=== PATIENT | female | born 1995 | race Caucasian/White ===

== ENCOUNTER 2018-04-05 17:30 | Emergency (ER) | payer SELFPAY ==
[2018-04-05 18:25] LABS: BASOPHILS # (AUTO) 0.2 10^3/uL (0.0-0.1); BASOPHILS % (AUTO) 2.4 %; EOSINOPHILS # (AUTO) 0.2 10^3/uL (0.0-0.7); EOSINOPHILS % (AUTO) 1.8 %; HGB - HEMOGLOBIN 14.8 g/dL (12.0-16.0); LYMPHOCYTES % (AUTO) 9.9 %; MEAN CORPUSCULAR HEMOGLOBIN 31.2 pg (27.0-31.0); MEAN CORPUSCULAR HGB CONC 32.8 g/dL (32.0-36.0); MEAN CORPUSCULAR VOLUME 95.3 fL (81.0-99.0); MEAN PLATELET VOLUME 8.1 fL (7.9-10.8); MONOCYTES # (AUTO) 0.4 10^3/uL (0.0-1.0); MONOCYTES % (AUTO) 3.8 %; NEUTROPHILS % (AUTO) 82.1 %; PLT - PLATELET COUNT 298 10^3/uL (130-450); RED BLOOD COUNT 4.76 10^6/uL (4.20-5.40); RED CELL DISTRIBUTION WIDTH 13.7 % (12.0-15.0); WHITE BLOOD COUNT 9.8 x10^3/uL (4.8-10.8)
[2018-04-05 18:34] LABS: ALBUMIN 4.5 g/dL (3.2-5.5); ALBUMIN/GLOBULIN RATIO 1.4 (1.0-2.2); BILIRUBIN,TOTAL 0.3 mg/dL (0.2-1.0); CALCIUM 9.4 mg/dL (8.5-10.3); CREATININE 0.5 mg/dL (0.4-1.0); TOTAL PROTEIN 7.7 g/dL (6.7-8.2)
--- NOTE | 2018-04-05 18:38 | ED Physician Documentation ---
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 Assoc with headache. Headache is pounding. C/O irregular menses every few months only. Appetite is normal. Headache is only present on standing. She is pain-free on evaluation in the emergency department.) Review of Systems Constitutional: denies: Fever, Chills, Fatigue Throat: denies: Sore throat Cardiac: reports: Chest pain / pressure. denies: Palpitations Respiratory: denies: Dyspnea, Cough GI: reports: Abdominal Pain. denies: Nausea, Vomiting, Constipation, Diarrhea PD PAST MEDICAL HISTORY - Past Medical History Past Medical History: No - Past Surgical History Past Surgical History: No - Present Medications Home Medications: Ambulatory Orders Medication Instructions Recorded Confirmed Levonorgestrel [Mirena] 1 each IY 04/05/18 - Allergies Allergies/Adverse Reactions: Allergies Allergy/AdvReac Type Severity Reaction Status Date / Time No Known Drug Allergies Allergy Verified 04/05/18 17:36 - Social History Does the pt smoke?: No Smoking Status: Never smoker Does the pt drink ETOH?: No Does the pt have substance abuse?: No - Immunizations Immunizations are current?: Yes - POLST Patient has POLST: No PD ED PE NORMAL - Vitals Vital signs reviewed: Yes - General General: Alert and oriented X 3, No acute distress - HEENT HEENT: PERRL, EOMI - Neck Neck: Supple, no meningeal sign, No bony TTP - Cardiac Cardiac: RRR (but tachycardic), No murmur - Respiratory Respiratory: No respiratory distress, Clear bilaterally - Abdomen Abdomen: Normal bowel sounds, Soft, Other (TTP in RLQ) - Back Back: No CVA TTP, No spinal TTP - Derm Derm: Normal color, Warm and dry - Extremities Extremities: No edema, No calf tenderness / cord - Neuro Neuro: Alert and oriented X 3, Normal speech Results - Vitals Vitals: Vital Signs - 24 hr 04/05/18 04/05/18 04/05/18 17:33 17:47 19:37 Temperature 37 C 36.9 C 36.6 C Heart Rate 127 H 130 H 106 H Respiratory 18 15 19 Rate Blood Pressure 110/83 H 120/75 102/65 O2 Saturation 99 99 99 Oxygen O2 Source Room air - EKG (time done) 1741 Rate: Rate (enter#) (131) Rhythm: Sinus tachycardia Parnell: Normal Intervals: Normal [place] QRS: Normal Ischemia: Normal ST segments Computer interpretation: Agree with computer - Labs Labs: Laboratory Tests 04/05/18 04/05/18 04/05/18 18:15 18:15 18:15 WBC 9.8 RBC 4.76 Hgb 14.8 Hct 45.3 MCV 95.3 MCH 31.2 H MCHC 32.8 RDW 13.7 Plt Count 298 MPV 8.1 Neut # (Auto) 8.0 H Lymph # (Auto) 1.0 L [place] # (Auto) 0.4 Eos # (Auto) 0.2 Baso # (Auto) 0.2 H Absolute Nucleated RBC 0.00 Nucleated RBC % 0.0 D-Dimer Sodium 133 L Potassium 3.6 Chloride 101 Carbon Dioxide 24 Anion Gap 8.0 BUN 14 Creatinine 0.5 Estimated GFR (MDRD) 154 Glucose 144 H Calcium 9.4 Total Bilirubin 0.3 AST 24 ALT 24 Alkaline Phosphatase 63 Troponin I < 0.04 Total Protein 7.7 Albumin 4.5 Globulin 3.2 Albumin/Globulin Ratio 1.4 Lipase 29 Urine Color Urine Clarity Urine pH Ur Specific [place] Urine Protein Urine Glucose (UA) Urine Ketones Urine Occult Blood Urine Nitrite Urine Bilirubin Urine Urobilinogen Ur Leukocyte Esterase Urine RBC Urine WBC Ur Squamous Epith Cells Urine Bacteria Ur Microscopic Review Urine Culture Comments Urine HCG, Qual Urine Opiates Screen Ur Oxycodone Screen Urine Methadone Screen Ur Propoxyphene Screen Ur Barbiturates Screen Ur Tricyclics Screen Ur Phencyclidine Scrn Ur Amphetamine Screen U Methamphetamines Scrn U Benzodiazepines Scrn Urine Cocaine Screen U Cannabinoids Screen 04/05/18 04/05/18 04/05/18 18:15 18:36 18:36 WBC RBC Hgb Hct MCV MCH MCHC RDW Plt Count MPV Neut # (Auto) Lymph # (Auto) [place] # (Auto) Eos # (Auto) Baso # (Auto) Absolute Nucleated RBC Nucleated RBC % D-Dimer < 200.0 L Sodium Potassium Chloride Carbon Dioxide Anion Gap BUN Creatinine Estimated GFR (MDRD) Glucose Calcium Total Bilirubin AST ALT Alkaline Phosphatase Troponin I Total Protein Albumin Globulin Albumin/Globulin Ratio Lipase Urine Color YELLOW Urine Clarity CLEAR Urine pH 6.5 Ur Specific [place] 1.010 Urine Protein NEGATIVE Urine Glucose (UA) NEGATIVE Urine Ketones NEGATIVE Urine Occult Blood MODERATE H Urine Nitrite NEGATIVE Urine Bilirubin NEGATIVE Urine Urobilinogen 0.2 (NORMAL) Ur Leukocyte Esterase NEGATIVE Urine RBC 0-5 Urine WBC 0-3 Ur Squamous Epith Cells RARE Squamous Urine Bacteria None Seen Ur Microscopic Review INDICATED Urine Culture Comments NOT INDICATED Urine HCG, Qual NEGATIVE Urine Opiates Screen NEGATIVE Ur Oxycodone Screen NEGATIVE Urine Methadone Screen NEGATIVE Ur Propoxyphene Screen NEGATIVE Ur Barbiturates Screen NEGATIVE Ur Tricyclics Screen NEGATIVE Ur Phencyclidine Scrn NEGATIVE Ur Amphetamine Screen NEGATIVE U Methamphetamines Scrn NEGATIVE U Benzodiazepines Scrn NEGATIVE Urine Cocaine Screen NEGATIVE U Cannabinoids Screen NEGATIVE - Rads (name of study) CT A/P Radiology: EMP read contemporaneously (normal) PD MEDICAL DECISION MAKING - ED course ED course: This is a 22-year-old woman who presents with multiple complaints, most pressing is abdominal pain and headache. The headache pattern is inconsistent with emergency medical diagnosis, it is only present on standing. She was pain-free after meds here and CT imaging was done of her belly which was read as normal but to my eye has a generous stool load which we will treat at home with magnesium citrate. All history was done and all questions were answered with the aid of a professional lpn medical assistant using a [employer] tablet. Departure - Departure Disposition: 01 Home, Self Care Clinical Impression: Irregular menses Abdominal pain Qualifiers: Abdominal location: left lower quadrant Qualified Code(s): R10.32 - Left lower quadrant pain Constipation Qualifiers: Constipation type: slow transit constipation Qualified Code(s): K59.01 - Slow transit constipation Headache Qualifiers: Headache type: unspecified Headache chronicity pattern: acute headache Intractability: not intractable Qualified Code(s): R51 - Headache Condition: Good Record reviewed to determine appropriate education?: Yes Instructions: ED Abdominal Pain Unkn Cause Print Language: Frisian Comments: Regrese por cualquier sntoma nuevo o que empeore. Regreso si no mejor en 3-5 ribeiro.
[2018-04-05] MEDS ORDERED: MAG HYDROX/AL HYDROX/SIMETH 30 ML UDC PO STA (18:39)
[2018-04-05] MEDS ORDERED: LIDOCAINE VISCOUS 2% 15 ML UDC MM STA (18:39)
[2018-04-05 18:49] LABS: MUDS CUTOFF CONCENTRATIONS CUTOFF CONC BELOW:
[2018-04-05 18:51] LABS: BILIRUBIN,URINE NEGATIVE (NEGATIVE); GLUCOSE, URINE (UA) NEGATIVE (NEGATIVE); KETONES,URINE (UA) NEGATIVE (NEGATIVE); LEUKOCYTE ESTERASE, URINE NEGATIVE (NEGATIVE); NITRITE,URINE NEGATIVE (NEGATIVE); OCCULT BLOOD,URINE MODERATE (NEGATIVE); PH,URINE 6.5 PH (5.0-7.5); PROTEIN,URINE NEGATIVE (NEGATIVE); UROBILINOGEN,URINE 0.2 (NORMAL) E.U./dL (NORMAL)
[2018-04-05 18:53] LABS: CLARITY,URINE CLEAR (CLEAR); HCG UR QUAL NEGATIVE
[2018-04-05] MEDS ORDERED: ACETAMINOPHEN 325 MG TABLET PO STA (19:00)
[2018-04-05 19:03] LABS: AMPHETAMINE SCREEN,URINE NEGATIVE (NEGATIVE); BENZODIAZEPINES SCREEN, URINE NEGATIVE (NEGATIVE); COCAINE SCREEN URINE NEGATIVE (NEGATIVE); METHADONE SCREEN, URINE NEGATIVE (NEGATIVE); METHAMPHETAMINES SCREEN, URINE NEGATIVE (NEGATIVE); OPIATE SCREEN, URINE NEGATIVE (NEGATIVE); OXYCODONE SCREEN, URINE NEGATIVE (NEGATIVE); PROPOXYPHENE SCREEN, URINE NEGATIVE (NEGATIVE); TRICYCLIC ANTIDEPRESSANT,URINE NEGATIVE (NEGATIVE)
[2018-04-05 19:12] LABS: RBC,URINE 0-5 /HPF (0-5); SQUAMOUS EPITHELIAL CELL,UR RARE Squamous (<= Few)
[2018-04-05 19:13] LABS: BACTERIA,URINE None Seen /HPF (None Seen)
[2018-04-05] MEDS ORDERED: IOVERSOL 320 100 ML VIAL IVP ONE ×2 (19:58→20:38)
--- NOTE | 2018-04-05 20:59 | CT Report ---
Reason: IV only, low abd TTP Procedure Date: 04/05/2018 Accession Number: [id number] / [id number] Procedure: CT - Abdomen/Pelvis W/ CPT Code: FULL RESULT: EXAM: CT ABDOMEN AND PELVIS EXAM DATE: 04/05/2018 08:37 PM. CLINICAL HISTORY: Pain. COMPARISONS: None. TECHNIQUE: Routine helical CT imaging was performed through the abdomen and pelvis. IV contrast: OPTI 320 80 ML. Enteric contrast: No. Reconstructions: Coronal and sagittal. In accordance with CT protocol optimization, one or more of the following dose reduction techniques were utilized for this exam: automated exposure control, adjustment of mA and/or KV based on patient size, or use of iterative reconstructive technique. FINDINGS: Lung Bases: Unremarkable. Liver: Normal. No masses. Gallbladder/Bile Ducts: Unremarkable. Spleen: Normal. Pancreas: Normal. Adrenal Glands: Normal. Kidneys: Normal. No masses or hydronephrosis. Peritoneal Cavity/Bowel: Normal. No free fluid, free air or adenopathy. No masses or acute inflammatory process. The appendix is well visualized and normal. Pelvic Organs: Normal. The bladder and visualized pelvic organs are within normal limits. Levoverted uterus with IUD in place. Vasculature: No aneurysms or other significant abnormality. Bones: No significant abnormality. Other: None. IMPRESSION: Normal abdomen and pelvis CT. RADIA
[2018-04-05] MEDS ORDERED: MAGNESIUM CITRATE 296 ML BOTTLE PO STA (21:17)
[2018-04-05 21:32] VITALS: BP 118/69
== END 2018-04-05 21:33 | disposition home or self-care (01) ==
LOC: ED 17:30
DX: N92.6 Irregular menstruation, unspecified (principal); R10.32 Left lower quadrant pain; K59.01 Slow transit constipation; R51 Headache
CPT/HCPCS: 36415; 74177; 80053; 80306; 81001; 81025; 83690; 84484; 85025; 85379; 93005; 99283; A9270; Q9967; 81003; 87086

== ENCOUNTER 2018-11-13 17:16 | Emergency (ER) | payer SELFPAY ==
--- NOTE | 2018-11-13 17:28 | ED Physician Documentation ---
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 - Present Medications Home Medications: Ambulatory Orders Medication Instructions Recorded Confirmed Levonorgestrel 20 Mcg/24H [Mirena] 1 each IY 04/05/18 - Allergies Allergies/Adverse Reactions: Allergies Allergy/AdvReac Type Severity Reaction Status Date / Time No Known Drug Allergies Allergy Verified 11/13/18 17:23 - Social History Does the pt smoke?: No Smoking Status: Never smoker Does the pt drink ETOH?: No Does the pt have substance abuse?: No - Immunizations Immunizations are current?: Yes - POLST Patient has POLST: No Results - Vitals Vitals: Vital Signs - 24 hr 11/13/18 17:19 Temperature 36.7 C Heart Rate 107 H Respiratory 18 Rate Blood Pressure 123/80 O2 Saturation 97 Oxygen O2 Source Room air
--- NOTE | 2018-11-13 17:39 | ED Physician Documentation ---
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 She is never had a UTI before.) Review of Systems Constitutional: denies: Fever, Chills, Myalgias GI: denies: Abdominal Pain, Nausea, Vomiting, Constipation, Diarrhea : reports: Dysuria. 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 - Present Medications Home Medications: Ambulatory Orders Medication Instructions Recorded Confirmed Levonorgestrel 20 Mcg/24H [Mirena] 1 each IY 04/05/18 Metronidazole [Flagyl] 500 mg PO BID #14 tablet 11/13/18 - Allergies Allergies/Adverse Reactions: Allergies Allergy/AdvReac Type Severity Reaction Status Date / Time No Known Drug Allergies Allergy Verified 11/13/18 17:23 - Social History Does the pt smoke?: No Smoking Status: Never smoker Does the pt drink ETOH?: No Does the pt have substance abuse?: No - Immunizations Immunizations are current?: Yes - POLST Patient has POLST: No PD ED PE NORMAL - Vitals Vital signs reviewed: Yes - General General: Alert and oriented X 3, No acute distress - Abdomen Abdomen: Normal bowel sounds, Soft, Non tender - Back Back: No CVA TTP - Neuro Neuro: Alert and oriented X 3, Normal speech Results - Vitals Vitals: Vital Signs - 24 hr 11/13/18 17:19 Temperature 36.7 C Heart Rate 107 H Respiratory 18 Rate Blood Pressure 123/80 O2 Saturation 97 Oxygen O2 Source Room air - Labs Labs: Microbiology 11/13/18 18:08 Wet Prep - Final Genital - Vaginal Laboratory Tests 11/13/18 11/13/18 17:29 17:29 Urine Color YELLOW Urine Clarity CLEAR Urine pH 7.0 Ur Specific [place] <=1.005 <=1.005 Urine Protein NEGATIVE Urine Glucose (UA) NEGATIVE Urine Ketones NEGATIVE Urine Occult Blood NEGATIVE Urine Nitrite NEGATIVE Urine Bilirubin NEGATIVE Urine Urobilinogen 0.2 (NORMAL) Ur Leukocyte Esterase NEGATIVE Ur Microscopic Review NOT INDICATED Urine Culture Comments NOT INDICATED Urine HCG, Qual NEGATIVE Departure - Departure Disposition: Home, Self Care Clinical Impression: Bacterial vaginosis Condition: Good Record reviewed to determine appropriate education?: Yes Instructions: ED Vaginosis Bacterial Prescriptions: Metronidazole [Flagyl] 500 mg PO BID #14 tablet Comments: Your urine is normal. The swab we took suggest that you have something called bacterial vaginosis. This is not an STD and is easily treated with antibiotics. Follow-up with the health lead, call tomorrow for an appointment. Return if worse. Tu orina es normal. El hisopo que tomamos sugiere que tienes algo llamado vaginosis bacteriana. Esta no es michael ETS y se trata fcilmente con antibiticos. Seguimiento con el gineclogo, llame maana para michael bri. Regrese si empeora.
[2018-11-13 17:41] LABS: BILIRUBIN,URINE NEGATIVE (NEGATIVE); GLUCOSE, URINE (UA) NEGATIVE (NEGATIVE); KETONES,URINE (UA) NEGATIVE (NEGATIVE); LEUKOCYTE ESTERASE, URINE NEGATIVE (NEGATIVE); NITRITE,URINE NEGATIVE (NEGATIVE); OCCULT BLOOD,URINE NEGATIVE (NEGATIVE); PROTEIN,URINE NEGATIVE (NEGATIVE); UROBILINOGEN,URINE 0.2 (NORMAL) E.U./dL (NORMAL)
[2018-11-13 17:44] LABS: CLARITY,URINE CLEAR (CLEAR); HCG UR QUAL NEGATIVE
[2018-11-13 19:15] VITALS: BP 119/72
== END 2018-11-13 18:55 | disposition home or self-care (01) ==
LOC: ED 17:16
DX: N76.0 Acute vaginitis (principal); B96.89 Other specified bacterial agents as the cause of diseases classified elsewhere
CPT/HCPCS: 81001; 81003; 81025; 87086; 87210; 99283

== ENCOUNTER 2021-11-30 08:00 | Outpatient (CLI) | payer MEDICAID ==
[2021-11-30 12:12] LABS: BILIRUBIN,URINE NEGATIVE (NEGATIVE); GLUCOSE, URINE (UA) NEGATIVE (NEGATIVE); KETONES,URINE (UA) NEGATIVE (NEGATIVE); LEUKOCYTE ESTERASE, URINE NEGATIVE (NEGATIVE); NITRITE,URINE NEGATIVE (NEGATIVE); OCCULT BLOOD,URINE NEGATIVE (NEGATIVE); PH,URINE 7.5 PH (5.0-7.5); PROTEIN,URINE NEGATIVE (NEGATIVE); UROBILINOGEN,URINE 0.2 (NORMAL) E.U./dL (NORMAL)
[2021-11-30 12:15] LABS: CLARITY,URINE CLEAR (CLEAR)
[2021-11-30 12:55] LABS: BACTERIA,URINE Few /HPF (None Seen); RBC,URINE 0-5 /HPF (0-5); SQUAMOUS EPITHELIAL CELL,UR MOD Squamous (<= Few); WBC,URINE 0-3 /HPF (0-5)
== END 2021-11-30 23:59 | disposition home or self-care (01) ==
LOC: LAB.WC 08:00
PROVIDERS: ATTEND Obstetrics & Gynecology
DX: Z34.90 Encounter for supervision of normal pregnancy, unspecified, unspecified trimester (principal); Z36.89 Encounter for other specified antenatal screening
CPT/HCPCS: 81001; 87086

== ENCOUNTER 2021-12-29 20:26 | Outpatient (CLI) | payer MEDICAID ==
--- NOTE | 2021-12-30 15:53 | Ultrasound Report ---
PROCEDURE: OB Detailed Eval INDICATIONS: SUPERVISION OF OUTSIDE/PRIOR DATING DATA: Last menstrual period (LMP): 08/04/2021. LMP-based estimated date of delivery (JOSE): 05/11/2022. First dating scan (date and location): 12/29/2021. Estimated date of delivery (JOSE) from first dating scan: 05/09/2022. TECHNIQUE: Real-time scanning was performed of the fetus, with image documentation and biometric measurements. COMPARISON: None. FINDINGS: General: A single living intrauterine gestation is present. Presentation: Variable Placenta: Placental position is anterior, without previa. Amniotic fluid index: 17.4 cm, within normal limits for gestational age. Largest pocket measures 5 .5 cm heart rate: 153 beats per minute. Maternal cervical canal: 4 cm long; normal length is 2.5 cm or more. biometrics: Biparietal diameter: 5.2 cm 21 weeks 5 days Head circumference: 19.1 cm 21 weeks 3 days Abdominal circumference: 17.1 cm 22 weeks 0 days Femur length: 3.5 cm 20 weeks 6 days Estimated gestational age from initial scan: 21 weeks 2 days Composite gestational age from present scan: 21 weeks 2 days Estimated weight and percentile: 429 g 72nd percentile Measurement variability in biometric dating: +/- 10 days from 12-20 weeks gestation, +/- 2 weeks from 20-30 weeks gestation, +/- 3 weeks at 30 weeks gestation or later. Anatomic survey: Neuro: Ventricles are normal at less than 10 mm. Cisterna magna is normal at 3-11 mm. Cerebellum i s normal in size and morphology. Nuchal skin fold: Normal at less than 6 mm between 14 and 20 weeks gestational age. Face: Nose and lips, facial profile are not well seen. Spine: No evidence for spina bifida. Heart: 4-chambered heart is present, with normal ventricular outflow tracts. Diaphragm: Diaphragm is intact. Stomach: Left-sided stomach is present. Kidneys: No hydronephrosis. Normal is less than 5 mm in 2nd trimester, less than 7 mm in 3rd trimester. Cord: 3 vessel cord has orthotopic insertion. Bladder: Normal in size. Extremities: All 4 extremities are visualized. IMPRESSION: Single live intrauterine with ultrasound gestational age today of 21 weeks 2 days. Facial profile as well as nose and lips are not well seen. Recommend interval ultrasound follow-up fo r further evaluation. Reviewed by: Kayleen Brannon MD on 12/30/2021 3:52 PM PST Approved by: Kayleen Brannon MD on 12/30/2021 3:52 PM PST Station ID: [id number]
== END 2021-12-29 20:27 | disposition home or self-care (01) ==
LOC: DI 20:26
PROVIDERS: ATTEND Obstetrics & Gynecology
DX: Z34.02 Encounter for supervision of normal first pregnancy, second trimester (principal); Z3A.21 21 weeks gestation of pregnancy

== ENCOUNTER 2022-02-02 10:03 | Outpatient (CLI) | payer MEDICAID ==
[2022-02-02 12:07] LABS: HCT - HEMATOCRIT 32.2 % (37.0-47.0); HGB - HEMOGLOBIN 10.6 g/dL (12.0-16.0); MEAN CORPUSCULAR HEMOGLOBIN 29.4 pg (27.0-31.0); MEAN CORPUSCULAR HGB CONC 32.9 g/dL (32.0-36.0); MEAN CORPUSCULAR VOLUME 89.2 fL (81.0-99.0); MEAN PLATELET VOLUME 9.4 fL (7.9-10.8); RED BLOOD COUNT 3.61 10^6/uL (4.20-5.40); RED CELL DISTRIBUTION WIDTH 13.4 % (12.0-15.0); WHITE BLOOD COUNT 8.3 x10^3/uL (4.8-10.8)
== END 2022-02-02 10:04 | disposition home or self-care (01) ==
LOC: LAB 10:03
PROVIDERS: ATTEND Obstetrics & Gynecology
DX: O34.211 Maternal care for low transverse scar from previous cesarean delivery (principal)
CPT/HCPCS: 36415; 82950; 85027; 86850

== ENCOUNTER 2022-04-14 15:50 | Outpatient (CLI) | payer MEDICAID | END 2022-04-14 23:59 | disposition home or self-care (01) | LOC: LAB.WC 15:50 | PROVIDERS: ATTEND Obstetrics & Gynecology | DX: Z36.85 Encounter for antenatal screening for Streptococcus B (principal) | CPT/HCPCS: 87797 ==

== ENCOUNTER 2022-08-16 08:00 | Outpatient (CLI) | payer MEDICAID | END 2022-08-16 23:59 | disposition home or self-care (01) | LOC: LAB.N 08:00 | PROVIDERS: ATTEND Specialist | DX: R07.0 Pain in throat (principal) | CPT/HCPCS: 87070 ==